=== PATIENT | male | born 1975 | race Caucasian/White ===

== ENCOUNTER 2023-02-07 05:14 | Emergency (ER) | payer OTHER, SELFPAY ==
[2023-02-07 05:18] VITALS: BP 152/113; PULSE 92; RESP 18; TEMP 37.2; O2SAT 96; BMI 44.3
--- NOTE | 2023-02-07 05:23 | ED.GENADUL1 ---
HPI - General Adult General Chief complaint: Eye Problems Stated complaint: LEFT EYE PAIN Time Seen by Provider: 02/07/23 05:23 Source: patient Mode of arrival: walk-in Limitations: no limitations History of Present Illness HPI narrative: Emergency department complaining of left lower eyelid pain and swelling. Patient states he noticed it yesterday like a stye has been putting warm compresses but this morning when he woke up and was more swollen than normal. He had a stye several years ago and this feels just like it. Denies any visual, denies any headache. He denies any nausea, vomiting. Denies any fever, chills, cough, chest, shortness of breath. States he was working out in the yard. He denies any metal grinding. Related Data Allergies Allergy/AdvReac Type Severity Reaction Status Date / Time No Known Drug Allergies Allergy Verified 02/07/23 05:22 Review of Systems ROS Narrative ROS: Unless otherwise stated in this report the patient's positive and negative responses for review of systems for constitutional, eyes, ENT, cardiovascular, respiratory, gastrointestinal, neurological, , musculoskeletal and integument systems and related systems to the presenting problem are either stated in the history of present illness or were not pertinent or were negative for the symptoms and/or complaints related to the presenting medical problem. [facility] Social History Smoking status: Never smoker Exam Narrative: Exam Narrative: General: The patient appears well and in no apparent distress. Patient is resting comfortably on cart. Skin: Warm, dry, no pallor noted. Head: Normocephalic, atraumatic Neck: Supple, trachea mid-line, no tenderness, no lymphadenopathy Eye: Normal extraocular motion without associated pain. Pupils equal, round and reactive to light. Conjunctival injection noted. mild swelling of left lateral lower eyelid with a tiny pinpoint pustule. cw stye. Patient's upper eyelid was everted - no evidence of foreign body. Ears, Nose, Mouth, and Throat: oral mucosa is moist Respiratory: Patient is in no distress Neurological: A&O x4, normal speech Psychiatric: Cooperative and interactive. Constitutional: Vital Signs, click to edit/add: Vital Signs - 24 hr 02/07/23 05:18 Temperature 99.0 F Pulse Rate [Monito r Right] 92 H Respiratory Rate 18 Blood Pressure [Ri ght Arm] 152/113 H Pulse Oximetry 96 Oxygen Delivery Me thod Room Air Course Vital Signs Vital signs: Vital Signs Temperature 99.0 F 02/07/23 05:18 Pulse Rate 92 H 02/07/23 05:18 Respiratory Rate 18 02/07/23 05:18 Blood Pressure 152/113 H 02/07/23 05:18 Pulse Oximetry 96 02/07/23 05:18 Oxygen Delivery Method Room Air 02/07/23 05:18 Temperature 99.0 F 02/07/23 05:18 Pulse Rate 92 H 02/07/23 05:18 Respiratory Rate 18 02/07/23 05:18 Blood Pressure 152/113 H 02/07/23 05:18 Pulse Oximetry 96 02/07/23 05:18 Oxygen Delivery Method Room Air 02/07/23 05:18 Medical Decision Making MDM Narrative Medical decision making narrative: Patient advised to use warm compresses, erythromycin ointment. He is to follow up with primary care doctor and ophthalmology. I answered all questions. Discussed discharge instructions including standard anticipatory guidance and what should prompt a return to the emergency department, including if they get worse are not getting better or develops any new or concerning symptoms. I've given them specific time frame in which to follow-up, and who to follow-up with. The patient demonstrates understanding. Patient is nontoxic and stable for discharge with outpatient follow-up. This note was created with the assistance of a speech recognition program. Although the intention is to generate documents that actually reflects the content of the visit, no guarantees can be provided that every mistake has been identified and corrected by editing. Differential Diagnosis Differential Diagnosis: stye, Periorbital cellulitis, conjunctivitis Discharge Plan Discharge Chief Complaint: Eye Problems Clinical Impression: Sty Patient Disposition: Home, Self-Care Time of Disposition Decision: 05:43 Condition: Good Instructions: Stye (ED) Interventions: ED Discharge Assessment Last Done: 02/07/23 06:06 Additional Instructions: erythromycin ointment, warm compresses. Stand Alone Forms: Portal Instructions Referrals: Joshua Ware MD [Physician] - 1 week PhysicianNon-StaffMD [Primary Care Provider] - 1 week
== END 2023-02-07 06:11 | disposition home or self-care (01) ==
PROVIDERS: Emergency Provider Emergency Medicine
DX: H00.015 Hordeolum externum left lower eyelid (principal); L03.213 Periorbital cellulitis; H10.9 Unspecified conjunctivitis
CPT/HCPCS: 99281

== ENCOUNTER 2023-11-11 22:02 | Emergency (ER) | payer BC, SELFPAY ==
[2023-11-11 22:06] VITALS: BP 142/99; PULSE 102; RESP 22; TEMP 36.4; O2SAT 97; BMI 43.1
--- NOTE | 2023-11-11 22:16 | ED_ITS ---
HPI - Allergic Reaction General Chief complaint: Allergic Reaction Stated complaint: Allergic Reaction Time Seen by Provider: 11/11/23 22:12 Source: patient Mode of arrival: walk-in Limitations: no limitations History of Present Illness HPI narrative: seen at Urgent care a couple of days ago for eye infection . Prescribed eye drops and keflex. tonight throat feels scratchy and his face is swollen. Doesn't feel short of breath but does feel anxious and has history of asthma. No fever or joint pain or nausea Related Data Allergies Allergy/AdvReac Type Severity Reaction Status Date / Time No Known Drug Allergies Allergy Verified 02/07/23 05:22 Review of Systems ROS Status of ROS 10 or more systems reviewed and unremark able except as noted in history and below [facility] Social History Smoking status: Never smoker Exam Constitutional Vital Signs, click to edit/add: Last Vital Signs Temp 97.6 F 11/11/23 22:06 Pulse 102 H 11/11/23 22:06 Resp 22 11/11/23 22:06 BP 142/99 H 11/11/23 22:06 Pulse Ox 97 11/11/23 22:06 O2 Del Method Room Air 11/11/23 22:06 Common normals: no apparent distress, average body habitus, oriented x3, no limitations, healthy appearing, alert and well nourished [facility] Common normals: normocephalic and head/scalp atraumatic Eye Common normals: PERRL and EOMs intact bilaterally Other: conjunctiva mildly injected bilat. no chemosis Respiratory Common normals: normal respiratory effort, no retractions, no use of accessory muscles and clear to auscultation bilaterally Cardio Common normals: regular rate, regular rhythm, S1 normal heart sound and S2 normal heart sound GI Common normals: Normal to inspection, nondistended, normoactive bowel sounds present, soft to palpation and non-tender Extremity Common normals: normal to inspection and full ROM Neuro Common normals: oriented x3, CN's II-XII intact bilaterally, moves all extremities and no focal motor deficits Psych Appearance: grossly normal Course Vital Signs Vital signs: Vital Signs Temperature 97.6 F 11/11/23 22:06 Pulse Rate 102 H 11/11/23 22:06 Respiratory Rate 22 11/11/23 22:06 Blood Pressure 142/99 H 11/11/23 22:06 Pulse Oximetry 97 11/11/23 22:06 Oxygen Delivery Method Room Air 11/11/23 22:06 Temperature 97.6 F 11/11/23 22:06 Pulse Rate 102 H 11/11/23 22:06 Respiratory Rate 22 11/11/23 22:06 Blood Pressure 142/99 H 11/11/23 22:06 Pulse Oximetry 97 11/11/23 22:06 Oxygen Delivery Method Room Air 11/11/23 22:06 MDM - Allergic Reaction MDM Narrative Medical decision making narrative: patient presents with an allergic reaction most likely to Keflex manifested by red scratchy throat without swelling and facial swelling. Treated in the ER with improvement in swelling and throat itch. Discharged home with prednisone and advised to continue benadryl Discharge Plan Discharge Chief Complaint: Allergic Reaction Clinical Impression: Allergic reaction Patient Disposition: Home, Self-Care Instructions: Antibiotic Medication Allergy (ED) Additional Instructions: discontinue Keflex. Use benadryl 25-50mg 3 times a day for 3 days Referrals: Physician,Non-Staff, MD [Primary Care Provider] - 1 week Stand Alone Forms: Portal Instructions
[2023-11-11] MEDS: METHYLPREDNISOLONE SOD SUCC PF 125 MG/2 ML VIAL IVP (22:25)
[2023-11-11] MEDS: FAMOTIDINE/PF 20 MG/2 ML VIAL IV (22:25)
[2023-11-11] MEDS: DIPHENHYDRAMINE HCL 50 MG/ML (1ML) VIAL IV (22:25)
[2023-11-11 22:27] LABS: Basophils Absolute Auto 0.1 10^3/uL (0.0-0.1); Basophils Percent Auto 0.5 % (0.2-2.0); Eosinophils Absolute Auto 0.4 10^3/uL (0.0-0.7); Eosinophils Percent Auto 2.4 % (0.9-7.0); Hematocrit 50.9 % (42.0-54.0); Hemoglobin 16.6 g/dL (14.0-18.0); Immature Granulocytes Abs Auto 0.07 10^3/uL (0.00-0.03); Immature Granulocytes Pct Auto 0.4 % (0.0-0.5); Lymphocytes Percent Auto 25.5 % (20.5-60.0); Mean Corpuscular HGB Conc 32.6 g/dL (29.9-35.2); Mean Corpuscular Hemoglobin 29.5 pg (25.9-34.0); Mean Corpuscular Volume 90.4 fL (80.0-94.0); Mean Platelet Volume 10.1 fL (9.5-13.5); Monocytes Absolute Auto 0.9 10^3/uL (0.3-0.8); Monocytes Percent Auto 5.8 % (1.7-12.0); Neutrophils Absolute Auto 10.2 10^3/uL (1.4-6.5); Neutrophils Percent Auto 65.4 % (43.0-75.0); Platelet Count 355 10^3/uL (150-450); Red Blood Count 5.63 10^6/uL (4.70-6.10); White Blood Count 15.6 10^3/uL (4.0-11.0)
[2023-11-11 22:37] LABS: BUN Creatinine Ratio 18.5; Calcium 9.6 mg/dL (8.5-10.1); Carbon Dioxide 24.2 mmol/L (21.0-32.0); Chloride 105 mmol/L (98-107); Estimated GFR (African America >60 (>=60); Estimated GFR (Non-African Ame >60 (>=60); Glucose 102 mg/dL (74-106); Potassium 4.2 mmol/L (3.5-5.1); Sodium 137 mmol/L (136-145)
[2023-11-11 23:16] VITALS: PULSE 87; RESP 16; O2SAT 96
[2023-11-12] VITALS: PULSE 79; RESP 16; O2SAT 97
== END 2023-11-12 00:38 | disposition home or self-care (01) ==
PROVIDERS: Emergency Provider Internal Medicine
DX: R22.0 Localized swelling, mass and lump, head (principal); T36.1X5A Adverse effect of cephalosporins and other beta-lactam antibiotics, initial encounter
CPT/HCPCS: 36415; 80048; 85025; 96374; 96375; 99284; J2930

== ENCOUNTER 2024-02-09 12:55 | Emergency (ER) | payer BC, SELFPAY ==
[2024-02-09] VITALS (13 sets, daily range): BP systolic 125–145; BP diastolic 90–108; PULSE 87–100; TEMP 36.6–36.9; O2SAT 99–100; BMI 46.4
--- NOTE | 2024-02-09 13:16 | ED.NAVMDI1 ---
HPI - Nausea/Vomiting/Diarrhea General Chief complaint: Nausea/Vomiting/Diarrhea Stated complaint: NAUSEA/HEART BURN Time Seen by Provider: 02/09/24 13:16 Source: patient Mode of arrival: walk-in Limitations: no limitations History of Present Illness HPI Narrative: 48-year-old male presents to the emergency department with complaint of nausea, vomiting, abdominal pain, loose stool. Onset last Friday. The family members had similar symptoms and thought it was, just a stomach flu. . Symptoms have somewhat persisted, though wax and wane. Went to see his provider today and was sent in for further evaluation. Has had history of umbilical hernia repair with mesh in the past. He reports that his provider was worried about obstruction. Denies any fever, chills. Quality:? Hurts Severity:?Moderate Timing:?As above, waxing and waning Context: Normal setting and activity? Modifying factors: Worse with palpation Associated symptoms: As above Related Data Home Medications ?Medication ?Instructions ?Recorded ?Confirmed albuterol sulfate 90 mcg/actuation inhalation 02/09/24 aerosol inhaler Previous Rx's ?Medication ?Instructions ?Recorded famotidine 20 mg tablet (Pepcid) 20 mg PO BID 10 days #20 tabs 02/09/24 ondansetron 4 mg disintegrating 4 mg PO DAILY PRN nausea and 02/09/24 tablet vomiting 3 days #14 tabs Allergies Allergy/AdvReac Type Severity Reaction Status Date / Time No Known Drug Allergies Allergy Verified 02/07/23 05:22 Review of Systems ROS Narrative CONST: Denies any fever, chills HENT: Denies any congestion, sore throat RESP: Denies any cough, shortness of breath CV: Denies any chest pain, peripheral edema GI: +abd pain, nausea, vomiting, diarrhea. : Denies any flank pain, dysuria MS: Denies any back pain, myalgias SKIN: Denies any color change, rash NEURO: Denies numbness, weakness PSYCHIATRIC: Denies confusion, agitation PFSH PFSH Social History Smoking status: Never smoker Exam Narrative Exam Narrative: Vital signs reviewed Nurses notes noted CONST: Nontoxic, well appearing, well nourished, in no distress.? No diaphoresis.?? HENT: normocephalic, atraumatic, moist mucous membrane, no abnormalities of the nose noted, hearing normal EYES: normal appearing conjunctiva, no apparent discharge bilat NECK: normal appearance CV: normal rate, regular rhythm, no murmur RESP: normal effort, speaking in complete sentences. Lung sounds clear and equal bilat.? No wheezes, rales, rhonchi GI: normal bowel sounds, soft, no distension, + tenderness, some firmness around the umbilicus. No guarding or rebound : no CVA tenderness MS: no edema, tenderness SKIN: no pallor NEURO: A&Ox 3, no focal findings PSYCH: normal mood, affect Constitutional Vital Signs, click to edit/add: Last Vital Signs Temp 98.4 F 02/09/24 15:57 Pulse 89 02/09/24 15:57 Resp 16 02/09/24 15:57 BP 127/95 H 02/09/24 15:57 Pulse Ox 100 02/09/24 15:57 O2 Del Method Room Air 02/09/24 15:57 Course Reevaluation(s) Reevaluation #1: On reevaluation, patient states he is feeling much better after treatment. Discussed with patient results, plan, and disposition. He is agreeable. Time: 15:56 Vital Signs Vital signs: Vital Signs Temperature 98.2 F 02/09/24 13:04 Pulse Rate 100 H 02/09/24 13:04 Respiratory Rate 18 02/09/24 13:04 Blood Pressure 145/108 H 02/09/24 13:04 Pulse Oximetry 99 02/09/24 13:04 Temperature 98.4 F 02/09/24 15:57 Pulse Rate 89 02/09/24 15:57 Respiratory Rate 16 02/09/24 15:57 Blood Pressure 127/95 H 02/09/24 15:57 Pulse Oximetry 100 02/09/24 15:57 Oxygen Delivery Method Room Air 02/09/24 15:57 MDM - Nausea/Vomiting/Diarrhea MDM Narrative Medical decision making narrative: This is a pleasant 48-year-old gentleman who presented to the emergency department with complaint of nausea, vomiting, and diarrhea since this past Friday. He has also had some abdominal discomfort in the location where he had hernia surgery (umbilical). Originally went to his doctor, was sent in for further evaluation, concern for possible bowel obstruction. Patient states he has been moving his bowels, diarrhea, and has been passing gas. Denies any known fever, chills. States that other family members in the household had similar symptoms. On arrival, afebrile, vital signs are stable. On exam, nontoxic, well-appearing patient in no distress. Heart regular rate and rhythm. Lung sounds clear and equal bilaterally. Abdomen is soft with some periumbilical tenderness, firmness. No rebound or guarding present. No CVA tenderness. Labs reveal leukocytosis similar to prior. No anemia, thrombocytopenia, electrolyte imbalance, renal impairment. LFTs, lipase unremarkable. CT abdomen pelvis imaging, per radiologist reveals 1. Large periumbilical fat filled hernia without appreciable strangulation. No bowel involvement. 2. Cholelithiasis. Patient given IV fluids, Pepcid, Zofran during ED course with overall improvement. Favor nausea, vomiting, diarrhea, nonspecific abdominal pain SBO, incarcerated, strangulated hernia less likely based on imaging Ischemic bowel less likely based on lactate and CT report Disposition ? The patient was discharged. Plan: Patient will be discharged to home. Condition at time of disposition: stable Prescription for Pepcid and Zofran sent to his pharmacy Advised to follow up with primary provider. Advised to return for any worsening and/or development of new, concerning signs or symptoms Admission considered, but he had negative workup, CT scan. PLEASE NOTE: Portions of the medical record may have been produced using electronic 7th grade social studies teacher and may contain errors with respect to translation of words which may not have been identified prior to finalization of the chart. Medical Records Attestation: I reviewed the patient's medical records. Lab Data Attestation: I reviewed the patient's lab results. Labs: Lab Results 02/09/24 Range/Units 13:45 WBC 15.4 H (4.0-11.0) 10^3/uL RBC 5.59 (4.70-6.10) 10^6/uL Hgb 17.0 (14.0-18.0) g/dL Hct 50.7 (42.0-54.0) % MCV 90.7 (80.0-94.0) fL MCH 30.4 (25.9-34.0) pg MCHC 33.5 (29.9-35.2) g/dL RDW 12.4 (11.0-15.0) % Plt Count 318 (150-450) 10^3/uL MPV 10.1 (9.5-13.5) fL Neut % (Auto) 70.7 (43.0-75.0) % Lymph % (Auto) 21.2 (20.5-60.0) % Coles % (Auto) 5.2 (1.7-12.0) % Eos % (Auto) 1.6 (0.9-7.0) % Baso % (Auto) 0.7 (0.2-2.0) % Neut # (Auto) 10.9 H (1.4-6.5) 10^3/uL Lymph # (Auto) 3.3 (1.2-3.8) 10^3/uL Coles # (Auto) 0.8 (0.3-0.8) 10^3/uL Eos # (Auto) 0.3 (0.0-0.7) 10^3/uL Baso # (Auto) 0.1 (0.0-0.1) 10^3/uL Abs Immat Gran (auto) 0.09 H (0.00-0.03) 10^3/uL Imm/Tot Granulo (auto) 0.6 H (0.0-0.5) % Sodium 139 (136-145) mmol/L Potassium 4.4 (3.5-5.1) mmol/L Chloride 102 (98-107) mmol/L Carbon Dioxide 25.0 (21.0-32.0) mmol/L Anion Gap 16.4 BUN 17.0 (7.0-18.0) mg/dL Creatinine 0.94 (0.70-1.30) mg/dL Est GFR ( Amer) >60 (>=60) Est GFR (Non-Af Amer) >60 (>=60) BUN/Creatinine Ratio 18.1 Glucose 90 (74-106) mg/dL Lactate 1.2 (0.4-2.0) mmol/L Calcium 9.6 (8.5-10.1) mg/dL Magnesium 2.1 (1.8-2.4) mg/dL Total Bilirubin 0.6 (0.2-1.0) mg/dL AST 20 (15-37) U/L ALT 33 (16-63) U/L Alkaline Phosphatase 102 (46-116) U/L Total Protein 8.1 (6.4-8.2) g/dL Albumin 4.1 (3.4-5.0) g/dL Globulin 4.0 g/dL Albumin/Globulin Ratio 1.0 Lipase 34.0 (16.0-77.0) U/L Imaging Data CT scan - abdomen: Attestation: I have reviewed the pertinent imaging results. Radiologist's impression: ITS Impressions Abdomen/Pelvis CT 02/09/24 14:14 IMPRESSION: 1. Large periumbilical fat filled hernia without appreciable strangulation. No bowel involvement. 2. Cholelithiasis. Electronically authenticated by: CARROL AGUILAR Date: 02/09/2024 14:33 ECG Data Attestation: I personally reviewed and interpreted this ECG as follows: (EKG performed at 1422 hrs. reveals sinus rhythm at 86 bpm. Normal axis. No STEMI. No ischemic or otherwise concerning changes. No ectopy.) ECG interpretation date: 02/09/24 ECG interpretation time: 14:40 Discharge Plan Discharge Stand Alone Forms: Work/School Release, Portal Instructions Chief Complaint: Nausea/Vomiting/Diarrhea Clinical Impression: Nausea vomiting and diarrhea, Nonspecific abdominal pain Ventral hernia Qualifiers: Obstruction and gangrene presence: without obstruction or gangrene Qualified Code(s): K43.9 - Ventral hernia without obstruction or gangrene Patient Disposition: Home, Self-Care Time of Disposition Decision: 15:56 Condition: Good Mode of Transportation: Private Vehicle Prescriptions / Home Meds: New famotidine [Pepcid] 20 mg tablet 20 mg PO BID 10 Days Qty: 20 0RF ondansetron 4 mg tablet,disintegrating 4 mg PO DAILY PRN (Reason: nausea and vomiting) 3 Days Qty: 14 0RF No Action albuterol sulfate 90 mcg/actuation HFA aerosol inhaler INHALATION Print Language: Gabonese Instructions: Acute Nausea and Vomiting (ED), Acute Diarrhea (ED), Acute Abdominal Pain (ED), Ventral Hernia (ED) Referrals: Morales Ortiz [Primary Care Provider] - 1 week
--- NOTE | 2024-02-09 13:26 | ECG_ITS ---
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
[2024-02-09 13:53] LABS: Basophils Absolute Auto 0.1 10^3/uL (0.0-0.1); Basophils Percent Auto 0.7 % (0.2-2.0); Eosinophils Absolute Auto 0.3 10^3/uL (0.0-0.7); Eosinophils Percent Auto 1.6 % (0.9-7.0); Hematocrit 50.7 % (42.0-54.0); Immature Granulocytes Abs Auto 0.09 10^3/uL (0.00-0.03); Immature Granulocytes Pct Auto 0.6 % (0.0-0.5); Lymphocytes Absolute Auto 3.3 10^3/uL (1.2-3.8); Lymphocytes Percent Auto 21.2 % (20.5-60.0); Mean Corpuscular HGB Conc 33.5 g/dL (29.9-35.2); Mean Corpuscular Hemoglobin 30.4 pg (25.9-34.0); Mean Corpuscular Volume 90.7 fL (80.0-94.0); Mean Platelet Volume 10.1 fL (9.5-13.5); Monocytes Absolute Auto 0.8 10^3/uL (0.3-0.8); Monocytes Percent Auto 5.2 % (1.7-12.0); Neutrophils Absolute Auto 10.9 10^3/uL (1.4-6.5); Neutrophils Percent Auto 70.7 % (43.0-75.0); Platelet Count 318 10^3/uL (150-450); Red Blood Count 5.59 10^6/uL (4.70-6.10); Red Cell Distribution Width 12.4 % (11.0-15.0); White Blood Count 15.4 10^3/uL (4.0-11.0)
[2024-02-09 14:12] LABS: Alanine Aminotransferase 33 U/L (16-63); Albumin Level 4.1 g/dL (3.4-5.0); Alkaline Phosphatase 102 U/L (46-116); Anion Gap 16.4; Aspartate Amino Transferase 20 U/L (15-37); BUN Creatinine Ratio 18.1; Bilirubin Total 0.6 mg/dL (0.2-1.0); Calcium 9.6 mg/dL (8.5-10.1); Chloride 102 mmol/L (98-107); Estimated GFR (African America >60 (>=60); Estimated GFR (Non-African Ame >60 (>=60); Glucose 90 mg/dL (74-106); Magnesium 2.1 mg/dL (1.8-2.4); Potassium 4.4 mmol/L (3.5-5.1); Sodium 139 mmol/L (136-145); Total Protein 8.1 g/dL (6.4-8.2)
--- NOTE | 2024-02-09 14:14 | CT_ITS ---
[address] [address] Patient Name: MOE OROZCO MRN: [id number] date: 1975 Sex: M Assigned Patient Location: ER Current Patient Location: Accession/Order Number: [id number] Exam Date: 02/09/2024 14:00 Report Date: 02/09/2024 14:33 At the request of: DREW ARBOLEDA Procedure: CT abdomen pelvis w con EXAMINATION: CT abdomen pelvis w con HISTORY: concern for SBO , nausea, heartburn, history of hernia COMPARISON: No relevant comparison available. TECHNIQUE: Axial, Coronal, and Sagittal images were obtained without and/or with IV contrast as indicated by examination type. Dose reduction techniques were achieved by using automated exposure control and/or adjustment of mA and/or kV according to patient size and/or use of iterative reconstruction technique. FINDINGS: LUNG BASES: No visible pulmonary or pleural disease. LIVER: No enlargement, atrophy, suspicious density, or significant focal lesion. BILIARY: 2 small 3 mm stones within noninflamed gallbladder. PANCREAS: No lesion, fluid collection, or abnormal duct dilatation. SPLEEN: No enlargement or focal lesion. ADRENALS: No mass or enlargement. KIDNEYS: Benign-appearing cyst within right kidney. No mass, obstruction, or calcification. BOWEL/MESENTERY: No visible mass, obstruction, or bowel wall thickening. Normal appendix. AORTA/VASCULAR: No aneurysm or dissection. RETROPERITONEUM: No mass or adenopathy. LYMPH NODES: No adenopathy. URINARY BLADDER: No visible focal wall thickening, lesion, or calculus. PELVIC ORGANS: No visible mass. Pelvic organs appropriate for patient age. ABDOMINAL WALL: Fat filled 11.5 cm periumbilical hernia with a 2.1 cm wide neck; no appreciable strangulation. BONES: No bony lesion or fracture. OTHER: Negative. CT/CT abdomen pelvis w con IMPRESSION: 1. Large periumbilical fat filled hernia without appreciable strangulation. No bowel involvement. 2. Cholelithiasis. Electronically authenticated by: CARROL AGUILAR Date: 02/09/2024 14:33
[2024-02-09] MEDS: 0.9 % SODIUM CHLORIDE 1,000 ML 999 ML IV (14:23)
[2024-02-09] MEDS: ONDANSETRON PF 4 MG/2 ML VIAL IV (14:25)
[2024-02-09] MEDS: FAMOTIDINE/PF 20 MG/2 ML VIAL IV (14:26)
[2024-02-09 15:18] LABS: Lactate/Lactic Acid 1.2 mmol/L (0.4-2.0)
== END 2024-02-09 17:37 | disposition home or self-care (01) ==
PROVIDERS: Physician Assistant; Emergency Provider Emergency Medicine Emergency Medical Services; PCP Family Medicine
DX: R11.2 Nausea with vomiting, unspecified (principal); R10.9 Unspecified abdominal pain; K43.9 Ventral hernia without obstruction or gangrene
CPT/HCPCS: 36415; 74177; 80053; 81001; 83605; 83690; 83735; 85025; 93005; 96361; 96374; 96375; 99285; Q9967